=== PATIENT | male | born 2005 | race African-American/Black ===

== ENCOUNTER 2025-02-23 23:30 | Emergency (ER) | payer OTHER ==
[2025-02-24 00:12] LABS: Hematocrit 42.2 % (42.0-52.0); Hemoglobin 14.7 g/dL (14.0-18.0); MDiff Complete? YES; Mean Corpuscular Hemoglobin 29.9 pg (27.0-31.0); Mean Corpuscular Volume 85.5 fl (78.0-98.0); Platelet Count 246 10x3/uL (130-400); Red Blood Cell (RBC) Count 4.93 mill/uL (4.70-6.10); White Blood Cell (WBC) Count 5.0 10x3/uL (4.8-10.8)
[2025-02-24] MEDS ORDERED: Ondansetron PF 4 MG/2 ML Vial ONE (00:16)
[2025-02-24 00:28] LABS: Troponin I Less than 0.010 ng/mL (< 0.028)
[2025-02-24 00:30] LABS: ALT (SGPT) 17 U/L (Less than 45); AST (SGOT) 23 U/L (11-34); Albumin 4.3 g/dL (3.1-4.5); Alkaline Phosphatase 52 U/L (40-110); Anion Gap 16 mmol/L (10-20); BUN (Urea Nitrogen) 14 mg/dL (8.9-20.6); Bilirubin, Total 0.3 mg/dL (0.3-1.2); CK (CPK) 107 U/L (30-200); Calc. Creatinine Clearance 0 mL/min (70-130); Calcium 9.2 mg/dL (7.8-10.44); Carbon Dioxide 22 mmol/L (22-29); Chloride 106 mmol/L (98-107); Globulin 3.1 g/dL (2.4-3.5); Glucose 76 mg/dL (70-105); Magnesium 1.8 mg/dL (1.6-2.6); Potassium 3.9 mmol/L (3.5-5.1); Sodium 140 mmol/L (136-145)
[2025-02-24] MEDS ORDERED: levETIRAcetam 500 MG TAB ONE (01:30)
== END 2025-02-24 01:42 ==
LOC: MADERS 23:30 → EEVIPCON 23:30 → MADERS 02-24 01:42
DX: G40.909 Epilepsy, unspecified, not intractable, without status epilepticus (principal); S16.1XXA Strain of muscle, fascia and tendon at neck level, initial encounter; S00.93XA Contusion of unspecified part of head, initial encounter; W19.XXXA Unspecified fall, initial encounter; Y92.149 Unspecified place in prison as the place of occurrence of the external cause
CPT/HCPCS: 70450; 71045; 72125; 80053; 82550; 83605; 83735; 84484; 85025; 93005; 96365; 96375; J2405; J7030; Q2009